=== PATIENT | female | born 2000 | race Caucasian/White ===

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

== ENCOUNTER 2024-07-29 17:39 | Emergency (ER) | payer BC ==
[~2024-07-29] VITALS: Ht 160 cm; Wt 64.4 kg
[~2024-07-29 17:39] MED LIST: EPIPEN JR0.15 MG/01 IM; FAMOTIDINE20 MG PO; LORATADINE10 MG PO; PREDNISONE20 MG PO; PROVENTIL HFA6.7 GM INH
[2024-07-29] MEDS ORDERED: VITAFOL-OB+DHA1 EACH (18:08)
[2024-07-29 22:20] VITALS: PULSE 100; RESP 18; TEMP 98.4
[2024-07-29] MEDS ORDERED: TAMIFLU75 MG PO (22:20)
[2024-07-29 22:36] VITALS: BP 108/67; PULSE 100; RESP 18; TEMP 98.4; O2SAT 99
== END 2024-07-29 22:39 | disposition home or self-care (01) ==
LOC: FSED 17:59
DX: R09.1 Pleurisy (principal); J10.1 Influenza due to other identified influenza virus with other respiratory manifestations; E28.2 Polycystic ovarian syndrome; R94.31 Abnormal electrocardiogram [ECG] [EKG]
CPT/HCPCS: 80048; 82553; 84484; 85025; 85379; 93005; 93970; 99284